=== PATIENT | female | born 1950 | race Hispanic/Latino ===

== ENCOUNTER 2022-09-29 09:22 | Emergency (ER) | payer MEDICARE ==
[~2022-09-29] VITALS: Ht 157.5 cm; Wt 145.1 kg
[~2022-09-29 09:22] MED LIST: CETI-89 PO; CITRACAL PO; CRAN500C2 PO; ECHINACEA PO; GLIM4TAB36 PO; IBUP-2784 PO; LOSA1TAB37 PO; MULT-1258 PO; PRAV40TA3 PO; SITA1TAB2 PO; TYLENOL ARTHRITIS PO; VITAMIN B12 PO; VITAMIN D2 PO; [UNRECOGNIZED DRUG - OTHER] PO; [UNRECOGNIZED DRUG - OTHER] PO
[2022-09-29 09:27] VITALS: BP 197/78
[2022-09-29 10:15] LABS: APPEARANCE,URINE CLEAR (CLEAR); BILIRUBIN,URINE NEGATIVE (NEGATIVE); COLOR,URINE LIGHT-YELLOW (YELLOW); GLUCOSE, URINE (UA) NEGATIVE (NEGATIVE); KETONES,URINE NEGATIVE (NEGATIVE); LEUKOCYTE ESTERASE ,URINE 75 Leu/uL (NEGATIVE); NITRATE,URINE NEGATIVE (NEGATIVE); OCCULT BLOOD,URINE NEGATIVE (NEGATIVE); PROTEIN,URINE NEGATIVE (NEGATIVE); UROBILINOGEN,URINE 0.2 mg/dL (0.2-1.0)
[2022-09-29 10:24] LABS: MUCUS,URINE RARE LPF (None Seen); RBC,URINE 0-1 /HPF (0-1); SQUAMOUS EPITHELIAL CELL,UR RARE /HPF (0-2)
[2022-09-29] MEDS ORDERED: KETOROLAC 30MG VIAL (30MG/ML) ONE (10:49)
[2022-09-29] MEDS ORDERED: KETOROLAC 30MG VIAL (30MG/ML) IVP SCH (11:00)
[2022-09-29] MEDS ORDERED: CEPH500B PO (11:25)
[2022-09-29] MEDS ORDERED: NAPR-1196 PO (11:25)
== END 2022-09-29 11:51 | disposition home or self-care (01) ==
LOC: EDH 09:22
DX: S29.012A Strain of muscle and tendon of back wall of thorax, initial encounter (principal); N39.0 Urinary tract infection, site not specified; E11.9 Type 2 diabetes mellitus without complications; E78.00 Pure hypercholesterolemia, unspecified; I10 Essential (primary) hypertension; Z79.899 Other long term (current) drug therapy; Z79.84 Long term (current) use of oral hypoglycemic drugs; Z98.890 Other specified postprocedural states; X58.XXXA Exposure to other specified factors, initial encounter; Y93.89 Activity, other specified; Y92.89 Other specified places as the place of occurrence of the external cause; Y99.8 Other external cause status
CPT/HCPCS: 99283; 96374; 87077; 87088; 87186; 81001; J1885